=== PATIENT | female | born 1955 | race African-American/Black ===

== ENCOUNTER 2017-04-13 12:54 | Outpatient (CLI) | payer BC, MEDICARE ==
--- NOTE | 2017-04-14 04:30 | Diagnostic Imaging Report ---
MERLIN BRIDGES~ [facility] [address] [facility].[address] [address] ~ ~ ~ ~ Report Submission Date: Apr 13, 2017 6:16:49 PM CDT Patient ~ Study Name: BRIDGETTE MCKAY ~ Date: Apr 13, 2017 1:21:07 PM CDT ~ Modality Type: CR Gender: F ~ Description: ABDOMEN : 57 ~ Institution: [facility] Physician: MERLIN BRIDGES ~ ~ ~ ~ Examination: Plain film abdomen History: Abdominal discomfort Findings: 2 views obtained of the abdomen. No abnormal dilation of the large or small bowel. Air and stool throughout the large bowel. No suspicious calcification projecting over the renal fossa or the lower pelvic region.~ Osseous structures are appropriate for age. Tubal ligation clips. Impression: No ileus or obstruction. No suspicious calcifications by plain film sensitivity. ~ Electronically signed on Apr 13, 2017 6:16:49 PM CDT by: Luis M COURTNEY
== END 2017-04-13 12:55 ==
LOC: RAD 12:54
PROVIDERS: ATTEND Nurse Practitioner Family
DX: K59.00 Constipation, unspecified (principal)
CPT/HCPCS: 74000

== ENCOUNTER 2017-07-04 16:21 | Outpatient (CLI) | payer BC ==
--- NOTE | 2017-07-05 06:56 | Diagnostic Imaging Report ---
MERLIN BRIDGES [facility] [id number] [address] [facility] [address] [address] Report Submission Date: Jul 04, 2017 8:07:45 PM CDT Patient Study Name: BRIDGETTE MCKAY Date: Jul 04, 2017 4:32:45 PM CDT Modality Type: CR Gender: F Description: SPINE : 57 Institution: [facility] Physician: MERLIN BRIDGES Examination: Plain film lumbar spine History: Back discomfort Findings: 5 views of the lumbar spine demonstrate normal height. No anterior compression. Oblique views demonstrate mild facet degenerative changes. No pars defect. Few anterior osteophytes. No prevertebral regularity. Slight curvature to the left. No soft tissue abnormalities. Impression: Degenerative changes. No acute osseous process. If patient is experiencing neurologic symptoms, consider obtaining MRI. Electronically signed on Jul 04, 2017 8:07:45 PM CDT by: Luis M COURTNEY
--- NOTE | 2017-07-05 06:57 | Diagnostic Imaging Report ---
MERLIN BRIDGES [facility] [id number] [address] [facility] [address] [address] Report Submission Date: Jul 04, 2017 8:09:06 PM CDT Patient Study Name: BRIDGETTE MCKAY Date: Jul 04, 2017 4:31:08 PM CDT Modality Type: CR Gender: F Description: PELVIS : 57 Institution: [facility] Physician: MERLIN BRIDGES Examination: Plain film pelvis History: Discomfort Comparison exams: None provided Findings: Single view of the pelvis demonstrate normal cortical margins. No fracture. No dislocation. Minimal superior acetabular spurring. Superior and inferior pubic rami and iliac wings are without abnormality. Pelvic phleboliths and tubal ligation clips. Impression: Minimal degenerative changes. No acute osseous process. Electronically signed on Jul 04, 2017 8:09:06 PM CDT by: Luis M COURTNEY
== END 2017-07-04 16:22 ==
LOC: RAD 16:21
PROVIDERS: ATTEND Nurse Practitioner Family
DX: M25.551 Pain in right hip (principal)
CPT/HCPCS: 72110; 72170